=== PATIENT | male | born 1990 | race Caucasian/White ===

== ENCOUNTER 2017-05-25 12:25 | Inpatient (IN) | payer BC, OTHER ==
[2017-05-25] MEDS: DILTIAZEM (SR) 60 MG CAP PO (00:56)
[2017-05-25] MEDS: ACETAMINOPHEN 650 MG SUPP PR ×2 (13:12→16:57)
[2017-05-25 13:34] LABS: ADD MAN DIFF? NO
[2017-05-25 13:39] LABS: ABNORMAL IP MESSAGE 1; BASOPHIL # 0.1 10^3/ul (0.0-0.1); BASOPHILS % 0.4 % (0.0-2.0); HEMATOCRIT 42.8 % (42.0-52.0); HEMOGLOBIN 13.9 g/dl (14.0-18.0); LYMPHOCYTES # 1.4 10^3/ul (0.8-2.9); LYMPHOCYTES % 5.9 % (15.0-51.0); MEAN CORPUSCULAR HGB CONC 32.5 g/dl (32.0-37.0); MEAN CORPUSCULAR VOLUME 92.4 fl (82.0-101.0); MEAN PLATELET VOLUME 9.9 fl (7.4-10.4); MONOCYTE # 1.3 10^3/ul (0.3-0.9); MONOCYTES % 5.6 % (0.0-11.0); NEUTROPHIL # 20.2 10^3/ul (1.6-7.5); NEUTROPHILS % 87.4 % (39.0-77.0); PLATELET COUNT 727 10^3/UL (140-415); POSITIVE DIFF @See below; RED BLOOD COUNT 4.63 10^6/ul (4.70-6.10); RED CELL DISTRIBUTION WIDTH 16.6 % (11.5-14.5)
[2017-05-25 13:39] LABS: WHITE BLOOD COUNT 23.1 10^3/ul (4.8-10.8)
[2017-05-25] MEDS: SODIUM CHLORIDE 0.9% 1L BAG IV* (13:52)
[2017-05-25] MEDS: LORAZEPAM 2 MG INJ IV ×2 (13:55→14:02)
[2017-05-25] MEDS: CEFEPIME 2GM/50 ML (PMX) 50 ML IVPB (14:08)
[2017-05-25 14:10] LABS: ALANINE AMINOTRANSFERASE 51 IU/L (13-69); ALBUMIN/GLOBULIN RATIO 1.19; ALKALINE PHOSPHATASE 143 IU/L (42-121); AMYLASE 155 U/L (11-123); ANION GAP 29 (8-16); ASPARTATE AMINO TRANSFERASE 59 IU/L (15-46); BILIRUBIN,INDIRECT 0.4 mg/dl (0-1.1); BILIRUBIN,TOTAL 0.4 mg/dl (0.2-1.3); BLOOD UREA NITROGEN 42 mg/dl (7-20); CALCIUM 11.5 mg/dl (8.4-10.2); CARBON DIOXIDE 32 mmol/L (21-31); CHLORIDE 110 mmol/L (97-110); CREATININE 1.19 mg/dl (0.61-1.24); GLUCOSE 135 mg/dl (70-220); INR 1.12; LIPASE 92 U/L (23-300); POTASSIUM 5.9 mmol/L (3.5-5.1); PROTIME 14.6 Sec (11.9-14.9); PT RATIO 1.1; TOTAL PROTEIN 9.2 g/dl (6.1-8.1)
[2017-05-25 14:11] LABS: PARTIAL THROMBOPLASTIN TIME 25.4 Sec (25.0-35.0)
[2017-05-25 14:13] LABS: D-DIMER 1067.25 ng/ml (<460)
[2017-05-25 14:14] LABS: SODIUM 165 mmol/L (135-144)
[2017-05-25] MEDS: VANCOMYCIN 1 GM (PMX) 250 ML IVPB (14:22)
[2017-05-25] MEDS: KETOROLAC 30 MG INJ IV (14:23)
[2017-05-25] MEDS: DIAZEPAM 5 MG/ML SYG IV ×2 (14:23→16:57)
[2017-05-25 14:34] LABS: ADD UMIC YES; UR ASCORBIC ACID 40 mg/dL (NEGATIVE); UR BILIRUBIN (Dip) NEGATIVE (NEGATIVE); UR BLOOD (Dip) 2+ mg/dL (NEGATIVE); UR CALCIUM OXALATE CRYSTAL MANY /HPF (NONE SEEN); UR CLARITY TURBID (CLEAR); UR COLOR AMBER (YELLOW); UR GLUCOSE (Dip) NEGATIVE (NEGATIVE); UR KETONES (Dip) NEGATIVE (NEGATIVE); UR LEUKOCYTE ESTERASE (Dip) 2+ Leu/ul (NEGATIVE); UR MUCUS MANY /HPF (NONE SEEN); UR NITRITE (Dip) NEGATIVE (NEGATIVE); UR RBC > 182 /HPF (0-5); UR SPECIFIC GRAVITY (Dip) 1.018 (1.003-1.030); UR TOTAL PROTEIN (Dip) 2+ mg/dl (NEGATIVE); UR UROBILINOGEN (Dip) NEGATIVE (NEGATIVE); UR WBC > 182 /HPF (0-5)
[2017-05-25] MEDS: SOD CHLORIDE 0.9% 1,000 ML IV ×4 (15:12→20:52)
[2017-05-25] MEDS: IBUPROFEN 800 MG TAB GTB (16:57)
[2017-05-25] MEDS: SOD CHLORIDE 0.9% 100 ML (17:04)
[2017-05-25] MEDS: IODIXANOL LOCM 100 ML BTL (17:04)
[2017-05-25 18:12] LABS: LACTIC ACID 1.3 mmol/L (0.5-2.0)
[2017-05-25] MEDS: MIDAZOLAM 1 MG/ML 2 ML INJ IV (18:14)
[2017-05-25] MEDS ORDERED: VANCOMYCIN IV PER PHARMACY XX (18:30)
[2017-05-25] MEDS ORDERED: NACL 0.9% 3 ML SYG IV (18:30)
[2017-05-25 18:45] LABS: ANION GAP 23 (8-16); BLOOD UREA NITROGEN 43 mg/dl (7-20); CARBON DIOXIDE 24 mmol/L (21-31); CHLORIDE 118 mmol/L (97-110); CREATININE 0.78 mg/dl (0.61-1.24); GLUCOSE 106 mg/dl (70-220); POTASSIUM 4.5 mmol/L (3.5-5.1); SODIUM 160 mmol/L (135-144)
[2017-05-25] MEDS ORDERED: ONDANSETRON 4 MG INJ IV (19:00)
[2017-05-25] MEDS: PIPER-TAZO 3.375 GM IV (PMX) 100 ML IVPB (19:18)
[2017-05-25] MEDS: morphine 4 MG/ML VIAL IV (19:27)
[2017-05-25] MEDS: HALOPERIDOL 5 MG INJ IM (21:20)
[2017-05-25] MEDS ORDERED: HEPARIN 1000 UNITS/ML 30 ML INJ SC (22:30)
[2017-05-25] MEDS ORDERED: LORAZEPAM 1 MG TAB PO (22:30)
[2017-05-25] MEDS: DEXTROSE 5%-0.45% NACL 1,000 ML IV (23:05)
[2017-05-26] MEDS: VANCOMYCIN 500MG/NS (PMX) 100 ML IVPB ×2 (00:17→06:39)
[2017-05-26] MEDS: morphine 2 MG INJ IV ×3 (01:02→17:31)
[2017-05-26] MEDS: SUCRALFATE (100 MG/ML) 10ML CUP GTB ×5 (01:06→21:10)
[2017-05-26] MEDS: PIPER-TAZO 3.375 GM IV (PMX) 100 ML IVPB ×5 (01:18→22:51)
[2017-05-26] MEDS: AMANTADINE 100 MG/10 ML POSYR GTB ×4 (01:18→21:09)
[2017-05-26] MEDS: LORAZEPAM 2 MG INJ IV ×4 (01:22→22:51)
[2017-05-26] MEDS: DEXTROSE 5%-0.45% NACL 1,000 ML IV ×5 (02:10→22:50)
[2017-05-26] MEDS: QUETIAPINE 100 MG TAB GTB ×2 (02:35→05:41)
[2017-05-26] MEDS: ACETAMINOPHEN 650MG/20.3ML CUP GTB ×4 (05:41→23:01)
[2017-05-26 06:12] LABS: WHITE BLOOD COUNT 15.3 10^3/ul (4.8-10.8)
[2017-05-26 06:12] LABS: HEMATOCRIT 30.7 % (42.0-52.0); HEMOGLOBIN 9.8 g/dl (14.0-18.0); MEAN CORPUSCULAR HEMOGLOBIN 30.5 pg (29.0-33.0); MEAN CORPUSCULAR HGB CONC 31.9 g/dl (32.0-37.0); MEAN CORPUSCULAR VOLUME 95.6 fl (82.0-101.0); MEAN PLATELET VOLUME 10.4 fl (7.4-10.4); PLATELET COUNT 320 10^3/UL (140-415); POSITIVE DIFF @See below; RED BLOOD COUNT 3.21 10^6/ul (4.70-6.10)
[2017-05-26 06:30] LABS: ADD MAN DIFF? YES
[2017-05-26 06:34] LABS: ALANINE AMINOTRANSFERASE 58 IU/L (13-69); ALBUMIN 3.3 g/dl (3.3-4.9); ALBUMIN/GLOBULIN RATIO 1.06; ALKALINE PHOSPHATASE 87 IU/L (42-121); ANION GAP 17 (8-16); ASPARTATE AMINO TRANSFERASE 65 IU/L (15-46); BILIRUBIN,INDIRECT 0.5 mg/dl (0-1.1); BILIRUBIN,TOTAL 0.5 mg/dl (0.2-1.3); BLOOD UREA NITROGEN 31 mg/dl (7-20); CALCIUM 9.6 mg/dl (8.4-10.2); CARBON DIOXIDE 24 mmol/L (21-31); CHLORIDE 123 mmol/L (97-110); CREATININE 0.55 mg/dl (0.61-1.24); GLUCOSE 95 mg/dl (70-220); POTASSIUM 3.6 mmol/L (3.5-5.1); SODIUM 160 mmol/L (135-144); TOTAL PROTEIN 6.4 g/dl (6.1-8.1)
[2017-05-26 08:26] LABS: ANISOCYTOSIS 2+ (0-0); BAND NEUTROPHILS #M 1.6 10^3/ul (0.0-0.6); BAND NEUTROPHILS % (M) 11 % (0-4); LYMPHOCYTES #M 1.8 10^3/ul (0.8-2.9); LYMPHOCYTES % (M) 12 % (15-51); MICROCYTOSIS 2+ (0-0); MONOCYTE #M 0.3 10^3/ul (0.3-0.9); MONOCYTES % (M) 2 % (0-11); PLATELET ESTIMATE NORMAL; POLYCHROMASIA 3+ (0-0); SEG NEUT #M 11.7 10^3/ul (1.6-7.5); SEGMENTED NEUTROPHILS (M) % 75 % (39-77); SMUDGE%M 3 % (0-0)
[2017-05-26] MEDS: TRIHEXYPHENIDYL 2 MG TAB GTB (08:55)
[2017-05-26] MEDS: DILTIAZEM (SR) 60 MG CAP PO (08:55)
[2017-05-26] MEDS: ENOXAPARIN 40 MG/0.4 ML SYG SC (09:13)
[2017-05-26] MEDS: DEXTROSE 5% 1,000 ML IV ×2 (10:00→15:40)
[2017-05-26 12:03] LABS: ANION GAP 15 (8-16); BLOOD UREA NITROGEN 23 mg/dl (7-20); CALCIUM 9.6 mg/dl (8.4-10.2); CARBON DIOXIDE 26 mmol/L (21-31); CHLORIDE 118 mmol/L (97-110); CREATININE 0.53 mg/dl (0.61-1.24); GLUCOSE 158 mg/dl (70-220); POTASSIUM 3.4 mmol/L (3.5-5.1); SODIUM 156 mmol/L (135-144)
[2017-05-26 13:40] LABS: VANCOMYCIN,TROUGH 7.4 ug/ml (10.0-20.0)
[2017-05-26] MEDS: VANCOMYCIN 1 GM 250 ML IVPB (14:04)
[2017-05-26] MEDS: BACLOFEN 10 MG TAB GTB ×2 (17:22→21:12)
[2017-05-26] MEDS: VANCOMYCIN 750 MG in DEXTROSE 5% 150 ML IVPB (21:09)
[2017-05-27] MEDS: morphine 2 MG INJ IV ×3 (00:54→12:47)
[2017-05-27] MEDS: DEXTROSE 5%-0.45% NACL 1,000 ML IV ×2 (02:00→06:04)
[2017-05-27 05:38] LABS: ADD MAN DIFF? NO
[2017-05-27 05:44] LABS: BASOPHIL # 0.1 10^3/ul (0.0-0.1); BASOPHILS % 0.4 % (0.0-2.0); EOSINOPHILS % 0.2 % (0.0-7.0); HEMATOCRIT 27.2 % (42.0-52.0); HEMOGLOBIN 8.9 g/dl (14.0-18.0); MEAN CORPUSCULAR HEMOGLOBIN 30.7 pg (29.0-33.0); MEAN CORPUSCULAR HGB CONC 32.7 g/dl (32.0-37.0); MEAN CORPUSCULAR VOLUME 93.8 fl (82.0-101.0); MEAN PLATELET VOLUME 10.1 fl (7.4-10.4); MONOCYTE # 0.9 10^3/ul (0.3-0.9); MONOCYTES % 7.8 % (0.0-11.0); NEUTROPHIL # 8.7 10^3/ul (1.6-7.5); NEUTROPHILS % 74.3 % (39.0-77.0); PLATELET COUNT 247 10^3/UL (140-415); RED CELL DISTRIBUTION WIDTH 16.2 % (11.5-14.5)
[2017-05-27 05:44] LABS: WHITE BLOOD COUNT 11.7 10^3/ul (4.8-10.8)
[2017-05-27] MEDS: AMANTADINE 100 MG/10 ML POSYR GTB (06:03)
[2017-05-27] MEDS: PIPER-TAZO 3.375 GM IV (PMX) 100 ML IVPB (06:03)
[2017-05-27] MEDS: VANCOMYCIN 750 MG in DEXTROSE 5% 150 ML IVPB (06:04)
[2017-05-27 06:28] LABS: ALANINE AMINOTRANSFERASE 45 IU/L (13-69); ALBUMIN 3.1 g/dl (3.3-4.9); ALBUMIN/GLOBULIN RATIO 1.19; ALKALINE PHOSPHATASE 63 IU/L (42-121); ANION GAP 12 (8-16); ASPARTATE AMINO TRANSFERASE 47 IU/L (15-46); BILIRUBIN,INDIRECT 0.5 mg/dl (0-1.1); BILIRUBIN,TOTAL 0.5 mg/dl (0.2-1.3); BLOOD UREA NITROGEN 15 mg/dl (7-20); CALCIUM 8.9 mg/dl (8.4-10.2); CARBON DIOXIDE 28 mmol/L (21-31); CHLORIDE 107 mmol/L (97-110); CREATININE 0.35 mg/dl (0.61-1.24); GLUCOSE 100 mg/dl (70-220); SODIUM 144 mmol/L (135-144); TOTAL PROTEIN 5.7 g/dl (6.1-8.1)
[2017-05-27] MEDS: SUCRALFATE (100 MG/ML) 10ML CUP GTB ×4 (09:43→21:00)
[2017-05-27] MEDS: ENOXAPARIN 40 MG/0.4 ML SYG SC (09:46)
[2017-05-27] MEDS ORDERED: POTASSIUM CHLORIDE (SR) 20 MEQ TAB PO (09:49)
[2017-05-27] MEDS: ZYVOX 600 MG TAB PO (10:00)
[2017-05-27] MEDS: MUPIROCIN 2% 22 GM OINT TOP ×2 (10:30→21:00)
[2017-05-27] MEDS: POTASSIUM CHLORIDE 20 MEQ POWDER FOR ORAL SOLN NGT (10:40)
[2017-05-27] MEDS: LORAZEPAM 2 MG INJ IV (11:48)
[2017-05-27] MEDS: BACLOFEN 10 MG TAB GTB (12:14)
[2017-05-27 13:55] LABS: ANION GAP 13 (8-16); BLOOD UREA NITROGEN 13 mg/dl (7-20); CALCIUM 9.3 mg/dl (8.4-10.2); CARBON DIOXIDE 30 mmol/L (21-31); CHLORIDE 103 mmol/L (97-110); CREATININE 0.36 mg/dl (0.61-1.24); GLUCOSE 84 mg/dl (70-220); POTASSIUM 4.2 mmol/L (3.5-5.1); SODIUM 142 mmol/L (135-144)
[2017-05-27] MEDS: AMPICILLIN 1.5 GM in SOD CHLORIDE 0.9% 100 ML IVPB ×2 (18:18→23:46)
[2017-05-27] MEDS: ACETAMINOPHEN 650MG/20.3ML CUP GTB (22:43)
[2017-05-27] MEDS: morphine 4 MG/ML VIAL IV (22:53)
[2017-05-28] MEDS: AMPICILLIN 1.5 GM in SOD CHLORIDE 0.9% 100 ML IVPB ×5 (00:10→23:45)
[2017-05-28] MEDS: LORAZEPAM 2 MG INJ IV ×3 (00:10→22:02)
[2017-05-28] MEDS: morphine 4 MG/ML VIAL IV ×2 (00:11→16:39)
[2017-05-28 05:15] LABS: ADD MAN DIFF? NO
[2017-05-28 05:21] LABS: WHITE BLOOD COUNT 7.5 10^3/ul (4.8-10.8)
[2017-05-28 05:21] LABS: BASOPHILS % 0.3 % (0.0-2.0); EOSINOPHILS % 0.5 % (0.0-7.0); LYMPHOCYTES # 1.9 10^3/ul (0.8-2.9); LYMPHOCYTES % 24.8 % (15.0-51.0); MEAN CORPUSCULAR HEMOGLOBIN 30.1 pg (29.0-33.0); MEAN CORPUSCULAR HGB CONC 33.3 g/dl (32.0-37.0); MEAN CORPUSCULAR VOLUME 90.4 fl (82.0-101.0); MEAN PLATELET VOLUME 9.9 fl (7.4-10.4); MONOCYTE # 0.5 10^3/ul (0.3-0.9); PLATELET COUNT 262 10^3/UL (140-415); RED BLOOD COUNT 3.32 10^6/ul (4.70-6.10); RED CELL DISTRIBUTION WIDTH 15.2 % (11.5-14.5)
[2017-05-28 05:39] LABS: ANION GAP 12 (8-16); BLOOD UREA NITROGEN 16 mg/dl (7-20); CALCIUM 9.4 mg/dl (8.4-10.2); CARBON DIOXIDE 31 mmol/L (21-31); CHLORIDE 105 mmol/L (97-110); CREATININE 0.33 mg/dl (0.61-1.24); GLUCOSE 97 mg/dl (70-220); MAGNESIUM 1.7 mg/dl (1.7-2.5); PHOSPHORUS 2.7 mg/dl (2.5-4.9); POTASSIUM 3.2 mmol/L (3.5-5.1); SODIUM 145 mmol/L (135-144)
[2017-05-28] MEDS: BACLOFEN 10 MG TAB GTB (07:51)
[2017-05-28 08:38] LABS: Allen Test ACCEPTAB; Arterial Base Excess 3.2 mmol/L (-3.0-3); Arterial Blood Gas Oxygen Sat 98.2 mmHG (95.0-98.0); Arterial COHb 0.3 % (0.0-3.0); Arterial Fraction of Oxyhgb 97.7 % (93.0-99.0); Arterial MetHb 0.2 % (0.0-1.5); MODE TRACH COLLAR; Site Right Radial
[2017-05-28] MEDS: POTASSIUM CHLORIDE (SR) 20 MEQ TAB PO (09:01)
[2017-05-28] MEDS: POTASSIUM CHLORIDE 20 MEQ POWDER FOR ORAL SOLN GTB (09:08)
[2017-05-28] MEDS: SUCRALFATE (100 MG/ML) 10ML CUP GTB ×4 (09:08→20:36)
[2017-05-28] MEDS: morphine 2 MG INJ IV ×2 (09:10→13:04)
[2017-05-28] MEDS: ENOXAPARIN 40 MG/0.4 ML SYG SC (09:19)
[2017-05-28] MEDS: MUPIROCIN 2% 22 GM OINT TOP ×2 (09:24→21:45)
[2017-05-28] MEDS: ACETAMINOPHEN 650MG/20.3ML CUP GTB (20:37)
[2017-05-29] MEDS: morphine 4 MG/ML VIAL IV (01:06)
[2017-05-29] MEDS: AMPICILLIN 1.5 GM in SOD CHLORIDE 0.9% 100 ML IVPB ×3 (05:17→14:55)
[2017-05-29 05:38] LABS: ANION GAP 14 (8-16); BLOOD UREA NITROGEN 18 mg/dl (7-20); CALCIUM 9.2 mg/dl (8.4-10.2); CARBON DIOXIDE 29 mmol/L (21-31); CHLORIDE 110 mmol/L (97-110); CREATININE 0.37 mg/dl (0.61-1.24); GLUCOSE 97 mg/dl (70-220); MAGNESIUM 1.9 mg/dl (1.7-2.5); POTASSIUM 3.5 mmol/L (3.5-5.1); SODIUM 149 mmol/L (135-144)
[2017-05-29] MEDS: MUPIROCIN 2% 22 GM OINT TOP ×2 (10:00→21:53)
[2017-05-29] MEDS: SUCRALFATE (100 MG/ML) 10ML CUP GTB ×4 (10:00→21:53)
[2017-05-29] MEDS: ENOXAPARIN 40 MG/0.4 ML SYG SC (10:06)
[2017-05-29] MEDS: ACETAMINOPHEN 650MG/20.3ML CUP GTB (13:00)
[2017-05-29] MEDS ORDERED: VANCOMYCIN IV PER PHARMACY XX (15:00)
[2017-05-29 15:37] LABS: ADD MAN DIFF? NO
[2017-05-29 15:38] LABS: BASOPHILS % 0.3 % (0.0-2.0); HEMATOCRIT 37.1 % (42.0-52.0); HEMOGLOBIN 12.2 g/dl (14.0-18.0); LYMPHOCYTES # 0.8 10^3/ul (0.8-2.9); MEAN CORPUSCULAR HEMOGLOBIN 30.2 pg (29.0-33.0); MEAN CORPUSCULAR HGB CONC 32.9 g/dl (32.0-37.0); MEAN CORPUSCULAR VOLUME 91.8 fl (82.0-101.0); MEAN PLATELET VOLUME 9.9 fl (7.4-10.4); MONOCYTE # 0.3 10^3/ul (0.3-0.9); MONOCYTES % 4.1 % (0.0-11.0); NEUTROPHIL # 6.2 10^3/ul (1.6-7.5); NEUTROPHILS % 84.2 % (39.0-77.0); PLATELET COUNT 439 10^3/UL (140-415); RED BLOOD COUNT 4.04 10^6/ul (4.70-6.10); RED CELL DISTRIBUTION WIDTH 15.7 % (11.5-14.5)
[2017-05-29 15:38] LABS: WHITE BLOOD COUNT 7.4 10^3/ul (4.8-10.8)
[2017-05-29 16:08] LABS: LACTIC ACID 1.7 mmol/L (0.5-2.0)
[2017-05-29 16:10] LABS: ADD UMIC YES; UR ASCORBIC ACID 40 mg/dL (NEGATIVE); UR BACTERIA FEW /HPF (NONE SEEN); UR BILIRUBIN (Dip) NEGATIVE (NEGATIVE); UR BLOOD (Dip) 1+ mg/dL (NEGATIVE); UR CLARITY CLOUDY (CLEAR); UR COLOR YELLOW (YELLOW); UR GLUCOSE (Dip) NEGATIVE (NEGATIVE); UR KETONES (Dip) NEGATIVE (NEGATIVE); UR LEUKOCYTE ESTERASE (Dip) 2+ Leu/ul (NEGATIVE); UR MUCUS MANY /HPF (NONE SEEN); UR NITRITE (Dip) NEGATIVE (NEGATIVE); UR RBC 52 /HPF (0-5); UR SPECIFIC GRAVITY (Dip) 1.025 (1.003-1.030); UR SQUAMOUS EPITHELIAL CELL FEW /HPF (FEW); UR TOTAL PROTEIN (Dip) 2+ mg/dl (NEGATIVE); UR UROBILINOGEN (Dip) NEGATIVE (NEGATIVE); UR WBC 93 /HPF (0-5)
[2017-05-29 16:12] LABS: ANION GAP 21 (8-16); BLOOD UREA NITROGEN 23 mg/dl (7-20); CALCIUM 10.5 mg/dl (8.4-10.2); CARBON DIOXIDE 31 mmol/L (21-31); CHLORIDE 114 mmol/L (97-110); CREATININE 0.49 mg/dl (0.61-1.24); GLUCOSE 133 mg/dl (70-220); POTASSIUM 4.3 mmol/L (3.5-5.1)
[2017-05-29] MEDS: SOD CHLORIDE 0.9% 1,000 ML IV ×2 (16:19→17:03)
[2017-05-29 16:33] LABS: SODIUM 162 mmol/L (135-144)
[2017-05-29] MEDS: MEROPENEM 1 GM/50ML(PMX) 50 ML IVPB ×2 (16:56→21:53)
[2017-05-29] MEDS: VANCOMYCIN 1.25 GM in SOD CHLORIDE 0.9% 250 ML IVPB (18:54)
[2017-05-29] MEDS: DEXTROSE 5%-0.45% NACL 1,000 ML IV ×2 (18:54→23:40)
[2017-05-29] MEDS: LORAZEPAM 1 MG TAB GTB (21:54)
[2017-05-30] MEDS: VANCOMYCIN 1 GM 250 ML IVPB ×2 (01:39→09:33)
[2017-05-30] MEDS: MEROPENEM 1 GM/50ML(PMX) 50 ML IVPB ×2 (05:28→13:22)
[2017-05-30 05:42] LABS: ADD MAN DIFF? NO
[2017-05-30 05:50] LABS: BASOPHILS % 0.6 % (0.0-2.0); HEMATOCRIT 34.3 % (42.0-52.0); HEMOGLOBIN 11.1 g/dl (14.0-18.0); LYMPHOCYTES # 1.8 10^3/ul (0.8-2.9); LYMPHOCYTES % 27.8 % (15.0-51.0); MEAN CORPUSCULAR HEMOGLOBIN 30.1 pg (29.0-33.0); MEAN CORPUSCULAR HGB CONC 32.4 g/dl (32.0-37.0); MEAN PLATELET VOLUME 10.3 fl (7.4-10.4); MONOCYTE # 0.7 10^3/ul (0.3-0.9); MONOCYTES % 10.4 % (0.0-11.0); NEUTROPHIL # 3.9 10^3/ul (1.6-7.5); NEUTROPHILS % 60.9 % (39.0-77.0); PLATELET COUNT 343 10^3/UL (140-415); RED BLOOD COUNT 3.69 10^6/ul (4.70-6.10); RED CELL DISTRIBUTION WIDTH 15.9 % (11.5-14.5)
[2017-05-30 05:50] LABS: WHITE BLOOD COUNT 6.4 10^3/ul (4.8-10.8)
[2017-05-30 06:27] LABS: BLOOD UREA NITROGEN 18 mg/dl (7-20); CARBON DIOXIDE 30 mmol/L (21-31); CHLORIDE 117 mmol/L (97-110); CREATININE 0.42 mg/dl (0.61-1.24); GLUCOSE 111 mg/dl (70-220)
[2017-05-30 06:50] LABS: SODIUM 162 mmol/L (135-144)
[2017-05-30 07:17] LABS: ANION GAP 19 (8-16)
[2017-05-30 07:19] LABS: POTASSIUM 3.7 mmol/L (3.5-5.1)
[2017-05-30] MEDS: MUPIROCIN 2% 22 GM OINT TOP ×2 (09:32→21:14)
[2017-05-30] MEDS: SUCRALFATE (100 MG/ML) 10ML CUP GTB ×4 (09:33→21:14)
[2017-05-30] MEDS: ENOXAPARIN 40 MG/0.4 ML SYG SC (09:35)
[2017-05-30] MEDS: ACETAMINOPHEN 650MG/20.3ML CUP GTB ×3 (12:00→21:15)
[2017-05-30] MEDS: DEXTROSE 5% 1,000 ML IV (13:10)
[2017-05-30 13:52] LABS: OSMOLALITY 316 mOsm/kg (280-295)
[2017-05-30] MEDS: LEVALBUTEROL (NEB) 0.31 MG/3 ML AMP HHN ×2 (14:09→19:36)
[2017-05-30 16:37] LABS: ANION GAP 14 (8-16); BLOOD UREA NITROGEN 20 mg/dl (7-20); CALCIUM 9.5 mg/dl (8.4-10.2); CARBON DIOXIDE 30 mmol/L (21-31); CHLORIDE 114 mmol/L (97-110); CREATININE 0.42 mg/dl (0.61-1.24); GLUCOSE 147 mg/dl (70-220); POTASSIUM 3.5 mmol/L (3.5-5.1)
[2017-05-30 16:45] LABS: SODIUM 154 mmol/L (135-144)
[2017-05-30 17:19] LABS: ADD UMIC YES; UR ASCORBIC ACID 20 mg/dL (NEGATIVE); UR BACTERIA FEW /HPF (NONE SEEN); UR BILIRUBIN (Dip) NEGATIVE (NEGATIVE); UR BLOOD (Dip) NEGATIVE (NEGATIVE); UR BUDDING YEAST MODERATE /HPF (NONE SEEN); UR CLARITY CLOUDY (CLEAR); UR COLOR YELLOW (YELLOW); UR GLUCOSE (Dip) NEGATIVE (NEGATIVE); UR KETONES (Dip) NEGATIVE (NEGATIVE); UR LEUKOCYTE ESTERASE (Dip) NEGATIVE Leu/ul (NEGATIVE); UR MUCUS FEW /HPF (NONE SEEN); UR NITRITE (Dip) NEGATIVE (NEGATIVE); UR RBC 12 /HPF (0-5); UR SPECIFIC GRAVITY (Dip) 1.019 (1.003-1.030); UR TOTAL PROTEIN (Dip) 1+ mg/dl (NEGATIVE); UR UROBILINOGEN (Dip) NEGATIVE (NEGATIVE); UR WBC 13 /HPF (0-5)
[2017-05-30] MEDS: FOSFOMYCIN 3 GM PACKET PO (17:42)
[2017-05-30 18:05] LABS: CREATININE,URINE RANDOM 64.68 mg/dl (20-370)
[2017-05-30 18:09] LABS: SODIUM,URINE RANDOM > 198 mmol/L (30-90)
[2017-05-30 18:26] LABS: OSMOLALITY,URINE 769 mOsm/kg (250-1200)
[2017-05-30] MEDS: DOCUSATE SODIUM 10 MG/ML (10ML CUP) GTB (21:14)
[2017-05-30] MEDS: BACLOFEN 10 MG TAB GTB (21:14)
[2017-05-31] MEDS: LEVALBUTEROL (NEB) 0.31 MG/3 ML AMP HHN ×4 (01:54→19:29)
[2017-05-31] MEDS: DEXTROSE 5% 1,000 ML IV (03:41)
[2017-05-31] MEDS: MUPIROCIN 2% 22 GM OINT TOP ×2 (09:03→22:28)
[2017-05-31] MEDS: SUCRALFATE (100 MG/ML) 10ML CUP GTB ×4 (09:03→22:28)
[2017-05-31] MEDS: ENOXAPARIN 40 MG/0.4 ML SYG SC (09:07)
[2017-05-31] MEDS: FLUCONAZOLE 100 MG TAB PO (15:18)
[2017-05-31 18:42] LABS: ADD MAN DIFF? NO
[2017-05-31 18:46] LABS: BASOPHILS % 0.7 % (0.0-2.0); EOSINOPHILS % 0.2 % (0.0-7.0); HEMATOCRIT 33.3 % (42.0-52.0); HEMOGLOBIN 10.8 g/dl (14.0-18.0); LYMPHOCYTES % 32.3 % (15.0-51.0); MEAN CORPUSCULAR HEMOGLOBIN 29.8 pg (29.0-33.0); MEAN CORPUSCULAR HGB CONC 32.4 g/dl (32.0-37.0); MEAN CORPUSCULAR VOLUME 91.7 fl (82.0-101.0); MONOCYTE # 0.6 10^3/ul (0.3-0.9); NEUTROPHIL # 3.4 10^3/ul (1.6-7.5); NEUTROPHILS % 56.5 % (39.0-77.0); PLATELET COUNT 279 10^3/UL (140-415); RED BLOOD COUNT 3.63 10^6/ul (4.70-6.10); RED CELL DISTRIBUTION WIDTH 15.7 % (11.5-14.5)
[2017-05-31 18:46] LABS: WHITE BLOOD COUNT 6.1 10^3/ul (4.8-10.8)
[2017-05-31 19:08] LABS: ALANINE AMINOTRANSFERASE 46 IU/L (13-69); ALBUMIN 3.6 g/dl (3.3-4.9); ALBUMIN/GLOBULIN RATIO 1.12; ALKALINE PHOSPHATASE 70 IU/L (42-121); ANION GAP 16 (8-16); ASPARTATE AMINO TRANSFERASE 29 IU/L (15-46); BILIRUBIN,INDIRECT 0.3 mg/dl (0-1.1); BILIRUBIN,TOTAL 0.3 mg/dl (0.2-1.3); BLOOD UREA NITROGEN 24 mg/dl (7-20); CALCIUM 9.2 mg/dl (8.4-10.2); CARBON DIOXIDE 28 mmol/L (21-31); CHLORIDE 106 mmol/L (97-110); CREATININE 0.36 mg/dl (0.61-1.24); GLUCOSE 99 mg/dl (70-220); POTASSIUM 3.5 mmol/L (3.5-5.1); SODIUM 146 mmol/L (135-144); TOTAL PROTEIN 6.8 g/dl (6.1-8.1)
[2017-05-31 19:13] LABS: PHOSPHORUS 2.8 mg/dl (2.5-4.9)
[2017-05-31 19:13] LABS: CHOL/HDL RATIO 2.5 RATIO; CHOLESTEROL 111 mg/dl (100-200); HDL CHOLESTEROL 44 mg/dl (30-63); LDL CHOLESTEROL,CALCULATED 49 mg/dl; TRIGLYCERIDES 89 mg/dl (0-149)
[2017-05-31 19:26] LABS: FREE T4 (FREE THYROXINE) 0.61 ng/dl (0.79-2.35)
[2017-05-31 19:38] LABS: HEMOGLOBIN A1C 4.7 % (0-5.9)
[2017-05-31 19:41] LABS: THYROID STIMULATING HORMONE 0.328 MIU/L (0.465-4.680)
[2017-06-01] MEDS: DEXTROSE 5% 1,000 ML IV (01:15)
[2017-06-01] MEDS: LEVALBUTEROL (NEB) 0.31 MG/3 ML AMP HHN ×3 (02:44→14:15)
[2017-06-01] MEDS: FLUCONAZOLE 100 MG TAB PO (08:10)
[2017-06-01] MEDS: ENOXAPARIN 40 MG/0.4 ML SYG SC (08:10)
[2017-06-01] MEDS: SUCRALFATE (100 MG/ML) 10ML CUP GTB ×3 (08:10→16:15)
[2017-06-01] MEDS: MUPIROCIN 2% 22 GM OINT TOP (08:11)
[2017-06-01 09:19] LABS: ANION GAP 14 (8-16); BLOOD UREA NITROGEN 28 mg/dl (7-20); CALCIUM 8.6 mg/dl (8.4-10.2); CARBON DIOXIDE 24 mmol/L (21-31); CHLORIDE 105 mmol/L (97-110); GLUCOSE 96 mg/dl (70-220); PHOSPHORUS 3.2 mg/dl (2.5-4.9); POTASSIUM 5.1 mmol/L (3.5-5.1); SODIUM 138 mmol/L (135-144)
[2017-06-01 09:35] LABS: MAGNESIUM 2.2 mg/dl (1.7-2.5)
[2017-06-01 12:12] LABS: HEMATOCRIT 32.4 % (42.0-52.0); HEMOGLOBIN 10.8 g/dl (14.0-18.0); MEAN CORPUSCULAR HEMOGLOBIN 30.1 pg (29.0-33.0); MEAN CORPUSCULAR HGB CONC 33.3 g/dl (32.0-37.0); MEAN CORPUSCULAR VOLUME 90.3 fl (82.0-101.0); MEAN PLATELET VOLUME 11.9 fl (7.4-10.4); POSITIVE DIFF @See below; RED BLOOD COUNT 3.59 10^6/ul (4.70-6.10); RED CELL DISTRIBUTION WIDTH 15.4 % (11.5-14.5)
[2017-06-01 12:30] LABS: ADD MAN DIFF? YES; PLATELET COUNT 162 10^3/UL (140-415)
[2017-06-01 13:15] LABS: ANISOCYTOSIS 2+ (0-0); ERYTHROBLAST% (NRBC) (M) 2 % (0-0); GIANT THROMBO% (M) 4 % (0-0); LYMPHOCYTES #M 1.8 10^3/ul (0.8-2.9); LYMPHOCYTES % (M) 31 % (15-51); MICROCYTOSIS 2+ (0-0); MONOCYTE #M 0.5 10^3/ul (0.3-0.9); MONOCYTES % (M) 9 % (0-11); OVALOCYTES 1+ (0-0); PLATELET ESTIMATE NORMAL; POLYCHROMASIA 2+ (0-0); REACTIVE LYMPHOCYTES% (M) 1 % (0-0); SEGMENTED NEUTROPHILS (M) % 59 % (39-77); SMUDGE%M 4 % (0-0)
[2017-06-01 17:26] LABS: CREATININE, RANDOM URINE 79 mg/dL (20-370); MICROALBUMIN 19.3 mg/dL; MICROALBUMIN/CREATININE RATIO 244 (<30)
== END 2017-06-01 19:11 | DRG 871 ==
LOC: MS2 05-29 07:14 → MS4 05-30 12:10 → ICU 22:06 → E/R 12:25 → MS2 05-29 10:08 → ICU 18:23
DX: A41.81 Sepsis due to Enterococcus (principal); R65.21 Severe sepsis with septic shock; E43 Unspecified severe protein-calorie malnutrition; L89.44 Pressure ulcer of contiguous site of back, buttock and hip, stage 4; G93.1 Anoxic brain damage, not elsewhere classified; N17.9 Acute kidney failure, unspecified; J96.10 Chronic respiratory failure, unspecified whether with hypoxia or hypercapnia; E87.0 Hyperosmolality and hypernatremia; Z68.1 Body mass index [BMI] 19.9 or less, adult; N39.0 Urinary tract infection, site not specified; E87.2 Acidosis; Z93.0 Tracheostomy status; Z91.5 Personal history of self-harm; E83.52 Hypercalcemia; Z74.01 Bed confinement status; Z93.1 Gastrostomy status; R13.10 Dysphagia, unspecified; E86.0 Dehydration; Z16.21 Resistance to vancomycin; L89.152 Pressure ulcer of sacral region, stage 2; D64.89 Other specified anemias
CPT/HCPCS: 36600; 70450; 71045; 80048; 80053; 80061; 80202; 81001; 81003; 82043; 82150; 82803; 82962; 83036; 83605; 83690; 83735; 83930; 83935; 84100; 84155; 84300; 84439; 84443; 84484; 85025; 85378; 85610; 85730; 87040; 87070; 87081; 87086; 87400; 93005; 94640; 94664; 96365; 96366; 96372; 96375; 96376; 99291-25